=== PATIENT | female | born 1960 | race Caucasian/White ===

== ENCOUNTER 2023-12-23 09:39 | Day surgery (SDC) | payer OTHER ==
[2023-12-17 15:27] VITALS: BMI 22.1
[2023-12-23] MEDS ORDERED: PROPOFOL 160 ML ONE (10:42)
[2023-12-23 15:17] VITALS: BP 132/76; PULSE 64; RESP 16; TEMP 97.6
== END 2023-12-23 12:30 | disposition home or self-care (01) ==
LOC: FASU-ENDO 09:39 → EDSEX 10:30 → FASU-ENDO 12:30
PROVIDERS: ATTEND Internal Medicine Gastroenterology
PROC: 0DB68ZX Excision of Stomach, Via Natural or Artificial Opening Endoscopic, Diagnostic (ICD-10-PCS; 2023-12-23)
PROC: 0DB48ZX Excision of Esophagogastric Junction, Via Natural or Artificial Opening Endoscopic, Diagnostic (ICD-10-PCS; 2023-12-23)
PROC: 0D998ZX Drainage of Duodenum, Via Natural or Artificial Opening Endoscopic, Diagnostic (ICD-10-PCS; 2023-12-23)
PROC: 0DB98ZX Excision of Duodenum, Via Natural or Artificial Opening Endoscopic, Diagnostic (ICD-10-PCS; principal; 2023-12-23 11:10)
DX: K20.90 Esophagitis, unspecified without bleeding (principal); K31.9 Disease of stomach and duodenum, unspecified; R10.13 Epigastric pain
CPT/HCPCS: 88305-TC; 88342-TC